=== PATIENT | female | born 1980 | race Caucasian/White ===

== ENCOUNTER 2017-06-28 18:05 | Emergency (ER) | payer BC ==
[~2017-06-28] VITALS: Ht 177.8 cm; Wt 63.7 kg
[2017-06-28 18:11] VITALS: BP 119/42
[2017-06-28 18:57] VITALS: TEMP 98.3
[2017-06-28 19:44] VITALS: PULSE 90
== END 2017-06-28 19:44 | disposition home or self-care (01) ==
LOC: COL.ER 18:05
DX: O26.891 Other specified pregnancy related conditions, first trimester (principal); M54.5 Low back pain; G89.29 Other chronic pain; O99.511 Diseases of the respiratory system complicating pregnancy, first trimester; J45.909 Unspecified asthma, uncomplicated; O99.331 Smoking (tobacco) complicating pregnancy, first trimester; F17.210 Nicotine dependence, cigarettes, uncomplicated; Z3A.08 8 weeks gestation of pregnancy
CPT/HCPCS: J3010